=== PATIENT | female | born 1965 | race Two or more races ===

== ENCOUNTER 2021-03-11 20:20 | Emergency (ER) | payer OTHER ==
[~2021-03-11] VITALS: Ht 170.2 cm; Wt 70.3 kg
--- NOTE | 2021-03-11 20:48 | NUR ---
DR. FORTE AT BEDSIDE, MSE IN PROGRESS.
[2021-03-11 20:57] VITALS: BP 128/77
--- NOTE | 2021-03-11 20:57 | NUR ---
Patient discharged to home in stable condition. Written and verbal after care instructions given. Patient verbalizes understanding of instructions. Stressed follow up or return to ER for worsening s/s. Denies any pain/discomfort. Steady gait. Afebrile.
== END 2021-03-11 20:58 | disposition home or self-care (01) ==
LOC: ER 20:22
DX: R20.1 Hypoesthesia of skin (principal); E78.5 Hyperlipidemia, unspecified
CPT/HCPCS: A4663